=== PATIENT | male | born 1955 | race Hispanic/Latino ===

== ENCOUNTER → 2019-12-23 | Outpatient (CLI) | payer OTHER ==
[~2019-12-23] MED LIST: IOPAMIDOL 370 MG/ML 200 ML INFUS..BTL INJ ONE; SODIUM CHLORIDE 0.9% 50ML 0 ML ONE; SODIUM CHLORIDE 0.9% 50ML 50 ML ONE
--- NOTE | 2019-12-23 11:37 | Diagnostic Imaging Report ---
CT of the abdomen and pelvis, with contrast. History: Lymphadenopathy, anemia. Comparison: None available. Technique: Multidetector CT scanning of the abdomen and pelvis was performed from the level of the lung bases to the inferior pubic rami after intravenous administration of contrast. Coronal and sagittal multiplanar reformations were obtained. RADIATION DOSE: Total DLP: 593.43 mGy*cm Dose modulation, iterative reconstruction, and/or weight based adjustment of the mA/kV was utilized to reduce the radiation dose to as low as reasonably achievable. FINDINGS: There is significant elevation of the left hemidiaphragm with associated compressive atelectasis of the left lower lobe and rightward shift of mediastinal contents. Atherosclerotic calcifications are noted within the coronary arteries. There are partially visualized changes from prior median sternotomy and suspected CABG. The liver is normal in size but appears diffusely decreased in attenuation in comparison to the spleen suggestive of fatty infiltration. No focal hepatic abnormality is identified. The gallbladder is unremarkable. There is no biliary ductal dilatation. The stomach, spleen, pancreas, and bilateral adrenal glands are unremarkable. The kidneys are normal in size and location and enhance symmetrically. There is no evidence for nephrolithiasis or hydronephrosis. No ureteral stone or dilatation is appreciated. The urinary bladder is not distended but appears grossly unremarkable. The prostate is mildly prominent and contains dystrophic calcifications. The abdominal aorta is normal in course and caliber with minimal atherosclerotic calcifications. The IVC is unremarkable. Please note evaluation the bowel is limited without the use of enteric contrast material. There is mild wall thickening of the descending colon without significant adjacent inflammatory change. The remaining visualized loops of small and large bowel demonstrate no evidence of obstruction or inflammation. The appendix is visualized and appears unremarkable. There is no ascites or intraperitoneal free air. Normal-sized inguinal lymph nodes are noted. No abnormally enlarged lymph nodes are identified within the abdomen or pelvis. There is a small fat-containing right inguinal hernia present. Postsurgical surgical changes from ORIF of prior left proximal femoral fracture noted with partially visualized intramedullary hardware. Suspected Schmorl's node noted at L5. The osseous structures otherwise demonstrate no evidence for acute fracture or destructive process. The extraperitoneal soft tissues are unremarkable. IMPRESSION: Circumferential wall thickening noted of the descending colon without adjacent inflammatory changes. Findings may relate to underdistention. A developing colitis could have a similar appearance. No other acute abdominopelvic process identified. Elevation of the left hemidiaphragm with associated compressive atelectasis of the left lower lobe and rightward mediastinal shift. Signed by: Dr. Zachariah Page MD on 12/23/2019 11:33 AM
== END ==
LOC: CT 09:40
PROVIDERS: ATTEND Internal Medicine Medical Oncology
DX: R59.1 Generalized enlarged lymph nodes (principal)
CPT/HCPCS: 74177; Q9967

== ENCOUNTER → 2021-11-05 | Outpatient (CLI) | payer OTHER | LOC: RAD 11:35 | PROVIDERS: ATTEND Family Medicine | DX: R07.89 Other chest pain (principal) | CPT/HCPCS: 71101 ==

== ENCOUNTER → 2024-04-05 | Day surgery (SDC) | payer MEDICARE ==
[~2024-04-05] MED LIST changes: +AMLODIPINE BESYL5 MG PO; +CLOPIDOGREL75 MG PO; +FAMOTIDINE20 MG PO; +FENTANYL CITRATE/PF 100MCG/2 ML INJ ONE; +FISH OIL 1,0001 EAC7 PO; +FLOMAX0.4 MG PO; -IOPAMIDOL 370 MG/ML 200 ML INFUS..BTL INJ ONE; +IRON325 M1 PO; +LIDOCAINE HCL 2% LOCAL INJ 5 ML SDV VIAL INJ ONE; +LIPITOR20 MG PO; +LISINOPRIL20 MG PO; +METOPROLOL SUCC25 MG PO; +MULTI-VITAMIN1 EACH PO; +NITROGLYCERIN0.4 MG SL; +PROBIOTIC1 EAC1 PO; +PROPOFOL IV EMULSION 50 ML IV ONE; -SODIUM CHLORIDE 0.9% 50ML 0 ML ONE; -SODIUM CHLORIDE 0.9% 50ML 50 ML ONE; +VITAMIN C1000 MG PO
[2024-04-05] MEDS: LACTATED RINGER'S 1,000 ML ONE (07:47)
[2024-04-05 11:11] VITALS: TEMP 97.9
[2024-04-05 11:40] VITALS: BP 108/83; PULSE 70; RESP 17; O2SAT 98
== END | disposition home or self-care (01) ==
LOC: OR 07:20
PROVIDERS: ATTEND Internal Medicine Gastroenterology
DX: Z12.11 Encounter for screening for malignant neoplasm of colon (principal); D12.3 Benign neoplasm of transverse colon; K29.50 Unspecified chronic gastritis without bleeding; K31.A15 Gastric intestinal metaplasia without dysplasia, involving multiple sites; K44.9 Diaphragmatic hernia without obstruction or gangrene; K21.9 Gastro-esophageal reflux disease without esophagitis; K64.1 Second degree hemorrhoids; D50.9 Iron deficiency anemia, unspecified; G47.33 Obstructive sleep apnea (adult) (pediatric); I25.810 Atherosclerosis of coronary artery bypass graft(s) without angina pectoris; I10 Essential (primary) hypertension; I25.2 Old myocardial infarction; E78.5 Hyperlipidemia, unspecified; J45.909 Unspecified asthma, uncomplicated; F41.9 Anxiety disorder, unspecified; F32.A Depression, unspecified; Z79.02 Long term (current) use of antithrombotics/antiplatelets; Z79.899 Other long term (current) drug therapy; Z68.31 Body mass index [BMI] 31.0-31.9, adult; Z95.1 Presence of aortocoronary bypass graft
CPT/HCPCS: 43239; 45384; 88112; 88305; 88342; 93005; J2003; J2704; J3010; J7121